=== PATIENT | male | born 1950 | race Caucasian/White ===

== ENCOUNTER 2018-10-11 20:37 | Observation (INO) ==
[2018-10-11 22:34] LABS: Basophils # 0.1 K/mcL (0.0-0.2); Basophils % 0.6 %; Eosinophils # 0.1 K/mcL (0.0-0.6); Eosinophils % 0.7 %; Hematocrit 42.9 % (37.5-50.1); Hemoglobin 13.9 g/dL (12.9-16.9); Immature Granulocytes % 0.1 % (0-4); Lymphocytes # 1.8 K/mcL (0.6-4.6); Mean Corpuscular HGB Conc 32.4 g/dL (31.6-35.5); Mean Corpuscular Hemoglobin 30.5 pg (28.0-33.3); Mean Corpuscular Volume 94.1 fL (83.0-100.0); Mean Platelet Volume 10.9 fL (9.4-12.4); Monocytes # 0.8 K/mcL (0.0-1.3); Monocytes % 8.4 %; Neutrophils # 6.8 K/mcL (1.6-8.9); Platelet Count 217 K/mcL (140-400); Red Blood Count 4.56 M/mcL (4.19-5.50); Red Cell Distribution Width 13.2 % (11.5-14.5); Segmented Neutrophils % 71.2 %; White Blood Count 9.5 K/mcL (4.3-11.1)
[2018-10-11 22:39] LABS: Prothrombin Time 11.7 Seconds (9.4-12.1)
[2018-10-11 22:41] LABS: Activated Partial Thrombo Time 31.6 Seconds (26.0-36.0)
[2018-10-11 22:51] LABS: BUN/Creatinine Ratio 23 (6-26); Blood Urea Nitrogen 24 mg/dL (8-23); Calcium 9.6 mg/dL (8.6-10.3); Carbon Dioxide 28 mEq/L (23-29); Chloride 104 mEq/L (98-107); Glucose 93 mg/dL (70-105); Osmolality,Calculated 292 (280-300); Potassium 5.1 mEq/L (3.5-5.1); Sodium 139 mEq/L (136-145); eGFR For African Americans > 60 (> 60); eGFR For Non-African Americans > 60 (> 60)
[2018-10-11 22:52] LABS: Troponin I 0.03 ng/mL (< 0.04)
[2018-10-12] MEDS ORDERED: Aspirin 325 MG TABLET PO ONE (00:17)
[2018-10-12] MEDS ORDERED: Nitroglycerin 0.4 MG TAB.SUBL SL PRN (01:29)
[2018-10-12 02:22] LABS: Basophils # 0.1 K/mcL (0.0-0.2); Basophils % 0.7 %; Eosinophils # 0.1 K/mcL (0.0-0.6); Eosinophils % 1.1 %; Hematocrit 44.6 % (37.5-50.1); Hemoglobin 14.6 g/dL (12.9-16.9); Immature Granulocytes % 0.3 % (0-4); Lymphocytes % 30.1 %; Mean Corpuscular HGB Conc 32.7 g/dL (31.6-35.5); Mean Corpuscular Volume 94.7 fL (83.0-100.0); Mean Platelet Volume 10.8 fL (9.4-12.4); Monocytes # 0.9 K/mcL (0.0-1.3); Monocytes % 8.7 %; Neutrophils # 5.8 K/mcL (1.6-8.9); Platelet Count 223 K/mcL (140-400); Red Blood Count 4.71 M/mcL (4.19-5.50); Red Cell Distribution Width 13.2 % (11.5-14.5); Segmented Neutrophils % 59.1 %; White Blood Count 9.8 K/mcL (4.3-11.1)
[2018-10-12 04:30] LABS: Chol/HDL Ratio 4.3 (0-4.9)
[2018-10-12] MEDS ORDERED: *HR* Heparin 5,000 UNIT/ML VIAL IVP PRN ×2 (05:01)
[2018-10-12] MEDS ORDERED: *HR* Heparin 5,000 UNIT/ML VIAL IVP ONE (05:01)
[2018-10-12] MEDS ORDERED: Heparin 25,000 UNIT/250 ML D5W 25,000 UNIT/250 ML IV.SOLN IVC SCH (05:15)
[2018-10-12 05:26] LABS: Hematocrit 41.6 % (37.5-50.1); Hemoglobin 13.8 g/dL (12.9-16.9); Mean Corpuscular HGB Conc 33.2 g/dL (31.6-35.5); Mean Corpuscular Hemoglobin 30.5 pg (28.0-33.3); Mean Corpuscular Volume 91.8 fL (83.0-100.0); Mean Platelet Volume 11.3 fL (9.4-12.4); Platelet Count 212 K/mcL (140-400); Red Blood Count 4.53 M/mcL (4.19-5.50); Red Cell Distribution Width 13.2 % (11.5-14.5); White Blood Count 8.3 K/mcL (4.3-11.1)
[2018-10-12] MEDS ORDERED: Nitroglycerin 1,000 MCG/10 ML VIAL IV ONE (10:14)
[2018-10-12] MEDS ORDERED: Heparin 1,000 UNITS/500 mL 500 ML ONE (10:14)
[2018-10-12] MEDS ORDERED: 0.9 % Sodium Chloride 1,000 ML ONE (10:14)
[2018-10-12] MEDS ORDERED: *HR* Heparin 10,000 UNIT/10 ML VIAL ONE ×2 (10:14→11:34)
[2018-10-12] MEDS ORDERED: ISOVUE-370 200 ML INFUS..BTL ONE ×2 (10:14→11:34)
[2018-10-12] MEDS ORDERED: Verapamil 5 MG/2 ML VIAL ONE (10:29)
[2018-10-12] MEDS ORDERED: *HR* Midazolam HCl 2 MG/2 ML VIAL ONE ×2 (10:46→11:03)
[2018-10-12] MEDS ORDERED: *HR* FentaNYL (PF) 100 MCG/2 ML VIAL ONE (10:46)
[2018-10-12] MEDS ORDERED: Tirofiban 12.5 MG/250ML 12.5 MG/250 ML BAG ONE (11:05)
[2018-10-12] MEDS ORDERED: *HR* Ticagrelor 90 MG TABLET ONE (12:08)
[2018-10-12] MEDS ORDERED: Tirofiban 12.5 MG/250ML 12.5 MG/250 ML BAG IVC SCH (12:15)
[2018-10-12] MEDS: *HR* Ticagrelor 90 MG TABLET PO SCH (20:36)
[2018-10-13 04:46] LABS: Hematocrit 43.2 % (37.5-50.1); Hemoglobin 14.3 g/dL (12.9-16.9)
[2018-10-13 04:58] LABS: BUN/Creatinine Ratio 16 (6-26); Blood Urea Nitrogen 18 mg/dL (8-23); eGFR For African Americans > 60 (> 60); eGFR For Non-African Americans > 60 (> 60)
[2018-10-13 08:13] VITALS: BP 107/67
[2018-10-13] MEDS ORDERED: Aspirin 325 MG TABLET PO SCH (09:00)
[2018-10-13] MEDS: *HR* Ticagrelor 90 MG TABLET PO SCH (09:17)
[2018-10-14 11:31] LABS: Estimated Average Glucose 123 mg/dl
== END 2018-10-13 14:00 | disposition home or self-care (01) ==
LOC: 3BNU 20:37 → EMEROOARM 20:37 → SUATTDRO 10-12 00:54 → 3BNU 10-12 01:45
PROVIDERS: ADMIT Internal Medicine Nephrology; ATTEND Internal Medicine